=== PATIENT | male | born 1955 | race Caucasian/White ===

== ENCOUNTER 2018-06-12 13:34 | Inpatient (IN) ==
[2018-06-12] MEDS ORDERED: Isovue-370 500 ML INFUS..BTL IV ONE (13:41)
[2018-06-12 13:57] LABS: Hematocrit 33.8 % (37.5-50.1); Hemoglobin 10.8 g/dL (12.9-16.9); Mean Platelet Volume 11.1 fL (9.4-12.4); Nucleated Red Blood Cells 0.9 /100 WBC (0); Platelet Count 204 K/mcL (140-400); Red Blood Count 3.38 M/mcL (4.19-5.50); Red Cell Distribution Width 16.3 % (11.5-14.5)
[2018-06-12] MEDS ORDERED: Nitroglycerin 25 MG/250 ML INFUS..BTL IVC SCH (14:00)
[2018-06-12] MEDS ORDERED: Heparin 25,000 UNIT/500 ML D5W 25,000 UNIT/500 ML BAG IVC SCH (14:00)
[2018-06-12] MEDS ORDERED: *HR* Heparin 5,000 UNIT/ML VIAL IVP ONE (14:00)
[2018-06-12] MEDS ORDERED: *HR* Heparin 5,000 UNIT/ML VIAL IVP PRN ×2 (14:00)
[2018-06-12] MEDS ORDERED: *HR* Ticagrelor 90 MG TABLET PO ONE (14:02)
[2018-06-12 14:06] LABS: INR 1.3; Prothrombin Time 14.6 Seconds (9.4-12.1)
--- NOTE | 2018-06-12 14:07 | Emergency Department Note ---
Disposition Clinical Impression: ST segment changes on electrocardiogram, Splenomegaly, NSTEMI (non-ST elevated myocardial infarction) Chest pain Qualifiers: Chest pain type: unspecified Qualified Code(s): R07.9 - Chest pain, unspecified Disposition: Admitted As Inpatient Condition: Critical Chest Pain HPI - General Chief Complaint: ED Chest Pain Stated Complaint: CP Time Seen by Provider: 06/12/18 13:53 Source: patient, EMS Mode of arrival: private vehicle Limitations: no limitations Vital Signs Reviewed: Yes Nursing Notes Reviewed: Yes - History of Present Illness HPI Narrative: Patient is a 63-year-old male with past medical history including polycythemia, history of aortic aneurysms with stent placements 5 years ago, hypertension, presenting with chief complaint of chest pain for the past week. Patient complains of substernal sharp chest pain that occurs worse in the evening for the past week. He states the chest pain has been progressively worsening and is now associated with shortness of breath. This morning he noticed bilateral lower extremity swelling which is also new for him. Chest pain was the most severe today and he is presenting for further evaluation. Severity scale (1-10): 5 - Related Data Home Medications Medication Instructions Recorded Confirmed Aspirin 81 mg PO DAILY 02/25/15 06/12/18 Atorvastatin [Lipitor] 40 mg PO HS 02/25/15 06/12/18 Acetaminophen w/Cod 300-30 mg 1 each PO Q12HR PRN 01/15/16 06/12/18 [Tylenol w/Codeine #3] Ranitidine HCl [Zantac] 300 mg PO HS 01/22/18 06/12/18 Previous Rx's Medication Instructions Recorded Heparin 2,000 unit IVP Q6H PRN vial 06/12/18 Heparin 4,000 unit IVP Q6HR PRN vial 06/12/18 Allergies Allergy/AdvReac Type Severity Reaction Status Date / Time No Known Allergies Allergy Verified 04/20/18 15:00 All systems ED: reviewed and negative except as stated. Review of Systems: As Per HPI Constitutional: Denies: fever, chills Eyes: Denies: vision change Cardiovascular: Reports: chest pain. Denies: palpitations Respiratory: Reports: dyspnea. Denies: cough Gastrointestinal: Denies: abdominal pain, nausea, diarrhea Genitourinary: Denies: dysuria Musculoskeletal: Denies: back pain Neurological: Denies: headache, weakness Chest Pain PMH - Past Medical History Medical history: Reports: hyperlipidemia, hypertension Psychiatric history: Reports: no psych history - Social History Smoking Status: Current every day smoker Alcohol use: Reports: none Drug use: Reports: none Physical Exam - General Limitations: no limitations General appearance: alert, in distress (moderate) - Head Head exam: atraumatic, normocephalic, normal inspection - Eye Eye exam: Present: normal appearance, EOMI - ENT ENT exam: normal exam, mucous membranes moist - Chest Chest inspection: Present: normal inspection, symmetric chest wall rise - Respiratory Respiratory exam: Present: normal lung sounds bilaterally. Absent: respiratory distress, wheezes - Cardiovascular Cardiovascular exam: Present: normal rhythm, tachycardia, normal heart sounds, other (Bilateral pulses are) - Abdominal Exam Abdominal exam: Present: soft, Non-Tender, other. Absent: distention, guarding, rebound, rigidity, normal bowel sounds, pulsatile mass - Extremities Exam Extremities exam: Present: normal capillary refill, other (Bilateral lower extremity pitting edema 1+ to midcalf) - Neurological Exam Neurological exam: Present: alert, oriented X3 - Psychiatric Psychiatric exam: Present: normal affect, normal mood - Skin Skin exam: Present: warm, intact, diaphoresis, pallor Course Vital Signs Temperature 96.7 F L 06/12/18 13:37 Pulse Rate 122 06/12/18 13:37 Respiratory Rate 22 06/12/18 13:37 Blood Pressure 119/57 06/12/18 13:37 O2 Sat by Pulse Oximetry 100 06/12/18 13:37 Temperature 96.7 F L 06/12/18 13:37 Pulse Rate 114 06/12/18 13:58 Respiratory Rate 22 06/12/18 14:35 Blood Pressure 88/6 06/12/18 14:35 O2 Sat by Pulse Oximetry 99 06/12/18 13:44 Oxygen Delivery Oxygen Delivery Nasal Cannula Chest Pain - [facility] Narrative Medical decision making narrative: Patient presenting with chest pain that is been intermittent for the past week, worsening in the evening. States today he had lower extremity swelling assoc iated with his chest pain is presenting here today. EKG obtained shows diffuse ST depression in all leads with ST elevation in aVR. Heart rate is tachycardic with 119 bpm. We called a STEMI alert at 13:45. Dr. Leo, interventional cardiology was called. We obtained posterior leads with ST depression in V7 and [address] elevation in V9. Discussed with Dr. Leo again at 13:56. STEMI alert was canceled and patient has been sent to CT imaging to evaluate for dissection with CT a chest, abdomen and pelvis. Heparin drip, nitro drip, Dilantin was also ordered per Dr. Leo's recommendations. Labs also obtained. Patient's blood pressure is also hypotensive states he is receiving IV fluids as well. He received 1 nitroglycerin with some relief in his pain. No more nitroglycerin will be given at this time secondary to blood pressure. Bedside ED [id number] ultrasound was obtained of his abdomen to evaluate for dissection. Aorta was visualized and not appear to be dilated without any evidence of dissection. 14:20 Troponin is 2.90. Nitro drip is held secondary to hypotension. No gross dissection was seen in CT when we called down there. He also did not have any abdominal pulsatile mass, equal radial pulses. Discussed with cardiology, Patient taken to laborer general for further intervention and admitted to ICU afterwards. 15:[address] results reviewed. There is no acute aortic pathology or dissection noted. However he is noted to have splenomegaly. - Medical Records Medical records reviewed: Yes I reviewed the patient's medical records. - Lab Data Result diagrams: 06/12/18 13:46 06/12/18 13:46 Lab Results 06/12/18 06/12/18 06/12/18 Range/Units 13:46 13:46 13:46 WBC 6.8 (4.3-11.1) K/mcL RBC 3.38 L (4.19-5.50) M/mcL Hgb 10.8 L (12.9-16.9) g/dL Hct 33.8 L (37.5-50.1) % MCV 100.0 (83.0-100.0) fL MCH 32.0 (28.0-33.3) pg MCHC 32.0 (31.6-35.5) g/dL RDW 16.3 H (11.5-14.5) % Plt Count 204 (140-400) K/mcL MPV 11.1 (9.4-12.4) fL Seg Neutrophils % 58.0 % Band Neutrophils % 6.0 H (0-4) % Lymphocytes % 18.0 % Monocytes % 10.0 % Eosinophils % 6.0 % Metamyelocytes % 2.0 H (0) % Neutrophils # 4.4 (1.6-8.9) K/mcL Lymphocytes # 1.2 (0.6-4.6) K/mcL Monocytes # 0.7 (0.0-1.3) K/mcL Eosinophils # 0.4 (0.0-0.6) K/mcL Nucleated RBCs/100 WBC 0.9 H (0) /100 WBC Platelet Estimate Normal (Normal) PT 14.6 H (9.4-12.1) Seconds INR 1.3 APTT 33.0 (26.0-36.0) Seconds Heparin Anti-Xa, Unfract 0.00 L (0.30-0.70) IU/mL Sodium 136 (136-145) mEq/L Potassium 4.4 (3.5-5.1) mEq/L Chloride 105 (98-107) mEq/L Carbon Dioxide 21 L (23-29) mEq/L BUN 26 H (8-23) mg/dL Creatinine 1.08 (0.70-1.30) mg/dL Est GFR ( Amer) > 60 (> 60) Est GFR (Non-Af Amer) > 60 (> 60) BUN/Creatinine Ratio 24 (6-26) Glucose 148 H (70-105) mg/dL Calculated Osmolality 290 (280-300) Calcium 8.8 (8.6-10.3) mg/dL Troponin I 2.90 H* (< 0.04) ng/mL - Radiology Data Radiology results reviewed: Yes I reviewed the patient's radiology results. Abdomen/Pelvis CTA 06/12/18 13:41 IMPRESSION: 1. No acute aortic pathology or dissection. 2. Increasing adenopathy within the chest, abdomen and pelvis. There is also marked splenomegaly with the spleen measuring up to 25 cm in craniocaudal dimension. Lymphomatous process is suspected. 3. No pulmonary embolus. 4. Mild nonspecific periportal edema. D/ / 06/12/2018 14:55:45 Kimberly Messer MD / bcarter Interpreting Provider: Kimberly Messer MD Chest CTA 06/12/18 13:41 IMPRESSION: 1. No acute aortic pathology or dissection. 2. Increasing adenopathy within the chest, abdomen and pelvis. There is also marked splenomegaly with the spleen measuring up to 25 cm in craniocaudal dimension. Lymphomatous process is suspected. 3. No pulmonary embolus. 4. Mild nonspecific periportal edema. D/ / 06/12/2018 14:55:45 Kimberly Messer MD / [email or web address] Interpreting Provider: Kimberly Messer MD - EKG Data EKG attestation: Yes I reviewed and interpreted this EKG. EKG results narrative: EKG obtained at 1339 shows sinus rhythm with heart rate 119. There is a left anterior fascicular block. There is diffuse ST depression in lead 1, 2, 3, V3, V4, V5, V6. There is ST elevation in aVR. These are all new changes compared to prior EKG on 05/30/2014. Second EKG obtained to include the posterior leads. There is ST depression in V7 and [address] elevation in V9. Attestation Statement - Attestation Attestation: I, Frandy Green DO, examined this patient [id number] and my medical decision-making was reviewed with Dr. Lucita Jacobsen , Resident Physician. I agree with the documented findings, disposition and treatment plan as described except to the extent set forth below. Please see my progress notes for details.
--- NOTE | 2018-06-12 14:16 | Cardiology Consult Note ---
Addendum entered and electronically signed by Vinicius Mo DO 06/12/18 16:19: I have personally performed a face to face evaluation on this patient. I have reviewed and agree with the care plan. History and Exam by me shows: Patient independently seen and examined prior to cardiac catheterization. Multiple risk factors for CAD presents with progressive chest pain over the last several days. Seen and evaluated in the ER. ECG noted to be abnormal, ST depressions noted. Troponin 2.9. Decision made to proceed with diagnostic cardiac catheterization. The risks, benefits, and alternatives to procedure were discussed and patient was agreeable to proceed. Catheterization demonstrated significant left main disease. Bypass recommended. Patient declined here, he will be transferred to a tertiary center. Agree with ACS therapy as described below. Of note, LVEF reportedly 40%. TTE pending. Thanks, Vinicius Mo DO, FAC Addendum entered and electronically signed by Froy Morfin CNP 06/12/18 15:36: Please use as cardiology H&P. Original Note: Date of Encounter: 06/12/18 Time of Encounter: 14:13 Assessment and Plan (1) NSTEMI (non-ST elevated myocardial infarction) Current Visit: Yes Status: Acute Initial troponin 2.90. Significant ischemic changes on ECG compared to 06/04/18. Diffuse diffuse ST depression in all leads with ST elevation in aVR. Does not meet STEMI criteria. Pt reports intermittent left sided chest/neck/shoulder pain for the past 5-7 days associated with dyspnea, diaphoresis, BLE edema. Symptoms worsening past 24 hours. CTA ABD/Pelvis/Chest was done to r/o dissection. Final report pending. Started on heparin gtt. Will start ASA and Statin. BB once BP allows. On Plavix 75mg daily at home, no load given. TTE to evaluate structure and function. EF preserved in 2013. Hx of carotid stenosis and PAD s/p multiple vascular procedures. Pt is hypotensive and tachycardic. Fluid bolus ordered. Given above, recommend urgent LHC. R/B/A discussed. Pt agrees and verbalizes understanding. Further recs to follow. Discussed with Dr. Mo and Dr. Mila Delgadillo. Discussion w patient/family: The assessment and plan as outlined above was discussed with the patient and/or family members who expressed understanding and agreement. All questions were answered. Thank you for involving us in the care of your patient. Please call with any questions. I will discuss all the above with Dr. Mo and make changes as necessary. History of Present Illness Consult date: 06/12/18 Chief complaint: chest/shoulder pain History of present illness: Mr. Sarah is a 63 year old male with PMH of bilateral carotid stenosis, PAD s/p several vascular interventions, HLD, COPD, tobacco abuse presenting with chest and left shoulder pain that is been intermittent for the past week, worsening over the past 24 hours. Reports associated diaphoresis and BLE edema. EKG obtained shows diffuse ST depression in all leads with ST elevation in aVR. EKG does not meet STEMI criteria, but is still concerning given significance of diffuse ischemic changes compared to ECG on 06/04/18. He received 1 nitroglycerin with some relief in his pain. No additional nitro was given due to hypotension. ED physician ordered CTA chest/ABD pelvis abdomen to evaluate for dissection. Pending. Troponin resulted--2.90. Cardiology consulted for further recs. Pain free currently. Prior CV testing: TTE 02/2014: Normal left ventricular structure and function. LVEF 65%. Normal LVDD. Normal right ventricular structure and function. Trileaflet aortic valve with focal calcification of the NCC. Normal function by Doppler. No hemodynamically significant valvular disease. Estimated RVSP is 36 mmHg. Mild pulmonary hypertension. Nuclear stress test 01/2014 : Perfusion imaging was negative for ischemia or infarct. Moderate sized perfusion defect of mild intensity in the inferior wall consistent with artifact. Hypotensive response to pharmacologic infusion with decrease in systolic BP from 100 mmHg to 80 mmHg which may represent side effect from medication, dehydration or severe CAD. No arrhythmias noted with stress. Gated EF = >70%. The LV is not dilated. There is no evidence of TID. Recommend clinical correlation. Past Med Surg Social Fam HX - Past Medical History Medical history: hyperlipidemia, hypertension, peripheral artery disease Additional medical history: blood thinners Psychiatric history: no psych history - Past Surgical History Additional surgical history: stents in abd - Social History Smoking Status: Current every day smoker Smokeless Tobacco Status: No Alcohol use: none Drug use: none Medications and Allergies Aspirin 81 mg PO DAILY 02/25/15 [History] Atorvastatin [Lipitor] 40 mg PO HS 02/25/15 [History] Clopidogrel [Plavix] 75 mg PO DAILY 02/25/15 [History] Acetaminophen w/Cod 300-30 mg [Tylenol w/Codeine #3] 1 each PO Q12HR PRN 01/15/16 [History] Atenolol [Tenormin] 25 mg PO DAILY 07/15/16 [History] Ranitidine HCl [Zantac] 300 mg PO HS 01/22/18 [History] Allergy/AdvReac Type Severity Reaction Status Date / Time No Known Allergies Allergy Verified 04/20/18 15:00 All Systems Review: The remainder of the systems were reviewed and are negative - Cardiovascular Cardiovascular: as per HPI, chest pain at rest, chest pain with exertion, diaphoresis, dyspnea at rest, dyspnea on exertion, radiating jaw, neck or arm pain, leg edema - Respiratory Respiratory: dyspnea Physical Examination Vital Signs, Last 4 Hours Temp Pulse Resp BP Pulse Ox 06/12/18 13:58 114 89/74 06/12/18 13:53 88/71 06/12/18 13:50 93/65 06/12/18 13:44 99 06/12/18 13:37 96.7 F L 122 22 119/57 100 Vital Signs Temp Pulse Resp BP Pulse Ox 06/12/18 14:35 22 88/6 06/12/18 13:58 114 89/74 06/12/18 13:53 88/71 06/12/18 13:50 93/65 06/12/18 13:44 99 06/12/18 13:37 96.7 F L 122 22 119/57 100 Intake and Output 06/11/18 06/12/18 06/12/18 23:59 07:59 15:59 Other: Weight 80.876 kg Patient Weight 06/12/18 23:59 Weight 80.876 kg General: Conversant, No Apparent Distress HEENT: Atraumatic, Normocephaly, Mucus Membranes Moist Neck: Normal carotid pulses Cardiac: Reg Rate and Rhythm, Normal S1 and S2, No Murmur, Other (tachycardic) Lungs: Normal Breath Sounds, No Wheeze, Rales, Rhonchi Neuro: Alert and responsive, No focal deficits noted Abdomen: Soft, Non-Tender Skin: No rashes noted on visualized skin Musculoskeletal: No Chest Wall Tenderness Extremities: Other (2+ BLE edema noted) Results 06/12/18 13:46 06/12/18 13:46 Short CBC 06/12/18 Range/Units 13:46 WBC 6.8 (4.3-11.1) K/mcL Hgb 10.8 L (12.9-16.9) g/dL Hct 33.8 L (37.5-50.1) % Plt Count 204 (140-400) K/mcL BMP 06/12/18 Range/Units 13:46 Sodium 136 (136-145) mEq/L Potassium 4.4 (3.5-5.1) mEq/L Chloride 105 (98-107) mEq/L Carbon Dioxide 21 L (23-29) mEq/L BUN 26 H (8-23) mg/dL Creatinine 1.08 (0.70-1.30) mg/dL Glucose 148 H (70-105) mg/dL Calcium 8.8 (8.6-10.3) mg/dL Cardiac Enzymes 06/12/18 Range/Units 13:46 Troponin I 2.90 H* (< 0.04) ng/mL Active Medications Heparin Sodium (Porcine) (Heparin) 4,000 unit IVP Q6HR PRN PRN Reason: SEE COMMENTS Stop: 12/12/18 14:01 Heparin Sodium (Porcine) (Heparin) 2,000 unit IVP Q6H PRN PRN Reason: SEE COMMENTS Stop: 12/12/18 14:01 Heparin Sodium/Dextrose (Heparin 25,000 Unit/500 Ml D5w) 25,000 unit in 500 mls @ 19.41 mls/hr IVC .Q24H DOLORES; Protocol Stop: 12/12/18 14:01 Last Admin: 06/12/18 14:27 Dose: 12 unit/kg/hr, 19.41 mls/hr Nitroglycerin (Nitroglycerin Premix 25 Mg/250 Ml) 25 mg in 250 mls @ 3 mls/hr IVC .Q24H DOLORES; Protocol Stop: 12/12/18 14:01 Last Admin: 06/12/18 14:31 Dose: Not Given Sodium Chloride (0.9 % Sodium Chloride) 1,000 mls @ 999 mls/hr IVC .Q1H1M ONE Stop: 06/12/18 15:23 Consult Discharge Plan - Plan Referrals: Richie Ford MD [Primary Care Provider] -
[2018-06-12] MEDS ORDERED: ISOVUE-370 200 ML INFUS..BTL ONE (14:17)
[2018-06-12] MEDS ORDERED: Heparin 1,000 UNITS/500 mL 500 ML ONE (14:17)
[2018-06-12] MEDS ORDERED: 0.9 % Sodium Chloride 1,000 ML ONE ×2 (14:17→14:31)
[2018-06-12] MEDS ORDERED: Nitroglycerin 1,000 MCG/10 ML VIAL IV ONE (14:17)
[2018-06-12] MEDS ORDERED: *HR* Heparin 10,000 UNIT/10 ML VIAL ONE (14:17)
[2018-06-12 14:19] LABS: BUN/Creatinine Ratio 24 (6-26); Blood Urea Nitrogen 26 mg/dL (8-23); Calcium 8.8 mg/dL (8.6-10.3); Carbon Dioxide 21 mEq/L (23-29); Chloride 105 mEq/L (98-107); Glucose 148 mg/dL (70-105); Osmolality,Calculated 290 (280-300); Potassium 4.4 mEq/L (3.5-5.1); Sodium 136 mEq/L (136-145); eGFR For Non-African Americans > 60 (> 60)
[2018-06-12] MEDS ORDERED: 0.9 % Sodium Chloride 1,000 ML IVC ONE (14:23)
[2018-06-12] MEDS ORDERED: *HR* Midazolam HCl 2 MG/2 ML VIAL ONE (14:37)
[2018-06-12] MEDS ORDERED: *HR* FentaNYL (PF) 100 MCG/2 ML VIAL ONE (14:37)
--- NOTE | 2018-06-12 14:40 | Emergency Department Note ---
Disposition Clinical Impression: Chest pain, ST segment changes on electrocardiogram Disposition: Admitted As Inpatient Condition: Fair Referrals: Richie Ford MD [Primary Care Provider] - Forms: ED Satisfaction Letter Time of Disposition: 14:54 General Adult HPI - General Chief complaint: ED Chest Pain Stated complaint: CP Time Seen by Provider: 06/12/18 13:53 Source: patient, EMS Mode of arrival: private vehicle Limitations: no limitations - History of Present Illness Pain Scale: 5 - Related Data Home Medications Medication Instructions Recorded Confirmed Aspirin 81 mg PO DAILY 02/25/15 06/12/18 Atorvastatin [Lipitor] 40 mg PO HS 02/25/15 06/12/18 Clopidogrel [Plavix] 75 mg PO DAILY 02/25/15 06/12/18 Acetaminophen w/Cod 300-30 mg 1 each PO Q12HR PRN 01/15/16 06/12/18 [Tylenol w/Codeine #3] Atenolol [Tenormin] 25 mg PO DAILY 07/15/16 06/12/18 Ranitidine HCl [Zantac] 300 mg PO HS 01/22/18 06/12/18 Allergies Allergy/AdvReac Type Severity Reaction Status Date / Time No Known Allergies Allergy Verified 04/20/18 15:00 Past Medical History - Past Medical History Medical history: Reports: hyperlipidemia, hypertension Psychiatric history: Reports: no psych history - Social History Smoking Status: Current every day smoker Smokeless Tobacco Status: No Alcohol use: Reports: none Drug use: Reports: none Physical Exam - General Limitations: no limitations General appearance: alert Course Vital Signs Temperature 96.7 F L 06/12/18 13:37 Pulse Rate 122 06/12/18 13:37 Respiratory Rate 22 06/12/18 13:37 Blood Pressure 119/57 06/12/18 13:37 O2 Sat by Pulse Oximetry 100 06/12/18 13:37 Temperature 96.7 F L 06/12/18 13:37 Pulse Rate 114 06/12/18 13:58 Respiratory Rate 22 06/12/18 14:35 Blood Pressure 88/6 06/12/18 14:35 O2 Sat by Pulse Oximetry 99 06/12/18 13:44 Oxygen Delivery Oxygen Delivery Nasal Cannula Medical Decision Making - Lab Data Result diagrams: 06/12/18 13:46 06/12/18 13:46 Lab Results 06/12/18 06/12/1806/12/19 Range/Units 13:46 13:46 13:46 WBC 6.8 (4.3-11.1) K/mcL RBC 3.38 L (4.19-5.50) M/mcL Hgb 10.8 L (12.9-16.9) g/dL Hct 33.8 L (37.5-50.1) % MCV 100.0 (83.0-100.0) fL MCH 32.0 (28.0-33.3) pg MCHC 32.0 (31.6-35.5) g/dL RDW 16.3 H (11.5-14.5) % Plt Count 204 (140-400) K/mcL MPV 11.1 (9.4-12.4) fL Nucleated RBCs/100 WBC 0.9 H (0) /100 WBC PT 14.6 H (9.4-12.1) Seconds INR 1.3 APTT 33.0 (26.0-36.0) Seconds Sodium 136 (136-145) mEq/L Potassium 4.4 (3.5-5.1) mEq/L Chloride 105 (98-107) mEq/L Carbon Dioxide 21 L (23-29) mEq/L BUN 26 H (8-23) mg/dL Creatinine 1.08 (0.70-1.30) mg/dL Est GFR ( Amer) > 60 (> 60) Est GFR (Non-Af Amer) > 60 (> 60) BUN/Creatinine Ratio 24 (6-26) Glucose 148 H (70-105) mg/dL Calculated Osmolality 290 (280-300) Calcium 8.8 (8.6-10.3) mg/dL Troponin I 2.90 H* (< 0.04) ng/mL Critical Care Time Critical Care Time: Yes Total Critical Care Time: 35 Attestation: Critical care performed: Time is exclusive of separately billable procedures. Time includes: direct patient care, patient reassessment, coordination of patient care, interpretation of data (laboratory data, radiology data, and respiratory data), review of patient's medical records, medical consultation and documentation of patient care. Procedures included in critical care time: Procedures excluded from critical care time: Attestation Statement - Attestation Attestation: Frandy Hernandez DO, examined this patient [id number] and my medical decision-making was reviewed with Dr. Lucita Jacobsen , Resident Physician. I agree with the documented findings, disposition and treatment plan as described except to the extent set forth below. Please see my progress notes for details. 63-year-old male presents emergency room by EMS for evaluation of chest pain. Symptoms of been present for approximately 7 days. His pain progressively got worse today and he said he called squad to be brought in. He does have a history of vascular stenting to the subclavian some femoral is according to him as well as an aorta. He denies any stenting of his heart in the past. Patient does have known history of vasculopathy. Vital signs are initially stable. One sublingual nitroglycerin was given in transport. This helped with his symptoms a little bit at that time his blood pressure did not tolerate the medications. Currently his only describes symptom is chest pain. Denies shortness of breath fevers chills. Denies any nausea vomiting or diarrhea. Denies any headache or vision change. Initial concern is noted for possible vascular related issue as well. Immediate bedside pelvic ultrasound was utilized showing no signs of dissection the abdominal cavity. CT angiography the chest abdomen and pelvis were ordered. Initial EKG was concerning for diffuse ST segment depressions including all the leads except for AVr and V1. There was elevation noted in those 2 lesions at this time. After a quick deliberation is determined that a STEMI alert was called. This was called at 1345. The EKG was reviewed with the on-call skip hoist operator Dr. Mila Delgadillo. She agrees this is most likely consistent with diffuse ischemia but does not meet acute myocardial infarction criteria at this time. Posterior EKG was completed by myself as well as the did show possible elevation in lead V6. This EKG was also reviewed with the skip hoist operator and no recommendations were made at this time. They sent with her advanced breasts providers done at the bedside to evaluate the patient. Interim CT angiography the chest and abdomen were ordered without labs. Disposition will be determined. Initial blood pressure was low. Heparin drip as well as Brilinta and nitroglycerin drip for requested by the skip hoist operator and these were ordered at this time. Fluids will be given for symptomatic control and disposition. Concern is noted for cardiac versus vascular related etiology causing the presentation here today. 1415 Patient has elevated troponin at 2.96. Blood pressure is low at this time with a systolic of 88.. Bolus was given. Symptoms are persistent but the patient is mentating appropriately. He is describing left-sided chest wall discomfort. Cardiology was at the bedside and recommended that he go to the [facility] at this time. Further medical intervention will be completed. [facility] was contacted and they are taking the patient immediately to the evaluation. Creatinine ap pears to be stable. Troponin is elevated. Platelets and hemoglobin are unremarkable. CT angiography of the chest and abdomen are reviewed by myself and did not show any acute signs of dissection or aneurysm at this time. Patient is leaving our emergency department stable to the [facility] for eval uation and cardiac catheterization. 35 minutes of critical care by the patient's treatment course at this time. Patient left our emergency department stable
[2018-06-12 14:41] LABS: Eosinophils # 0.4 K/mcL (0.0-0.6); Lymphocytes # 1.2 K/mcL (0.6-4.6); Monocytes # 0.7 K/mcL (0.0-1.3); Neutrophils # 4.4 K/mcL (1.6-8.9); Platelet Estimate Normal (Normal)
--- NOTE | 2018-06-12 14:44 | Pre-Sedation Evaluation ---
Pre-sedation evaluation - Pre-sedation checklist Date of procedure: 06/12/18 Procedure: [facility] Recent Vitals: Last Vital Signs Temp 96.7 F L 06/12/18 13:37 Pulse 114 06/12/18 13:58 Resp 22 06/12/18 14:35 BP 88/6 06/12/18 14:35 Pulse Ox 99 06/12/18 13:44 H&P (including ROS) documented in medical record: Yes Previous reaction to sedatives/anesthetics: No Dietary Status: unknown Airway Assessment: Patient can open mouth completely, TMJ function normal, Micrognathia (under-bite, receding chin) absent, Neck with adequate range of motion Dentition: No loose teeth or bridges Possible difficult airway: No ASA Classification *see protocol: CLASS II-Mild systemic disease, CLASS III- Severe systemic disease Plan of Care: Pt appropriate candidate for procedure/moderate/conscious sedation, Risks/benefits of procedure/sedation discussed w/ patient/family, If not NPO; Risk of intake outweiged by necessity to perform procedure Cardiac Registry (Cardio Only) - Functional Capacity Functional Capacity: < 4 METS - Clincal Frailty Scale Clinical Frailty Scale: Vulnerable
--- NOTE | 2018-06-12 15:40 | Cardiothoracic Consult Note ---
Date of Encounter: 06/12/18 Time of Encounter: 15:37 Assessment and Plan (1) NSTEMI (non-ST elevated myocardial infarction) Current Visit: Yes Status: Acute The assessment and plan as outlined above was discussed with the patient and/or family members who expressed understanding and agreement. All questions were answered. The patient in my opinion is not a candidate for emergency open heart surgery tonight at this institution. His ventricular function is poor, he is in the middle of a myocardial infarction and he is on daily Plavix and received some today. I would recommend transfer to a in institution in [place] or [place]. - History of Present Illness History of present illness: Mr. Sarah is a 63 year old male The patient is a 63-year-old gentleman who is presently in the cardiac catheterization lab. The history was obtained from the chart as the patient is prepped and draped. He presented with chest pain and had a positive troponin of 2.9. Past medical history is positive for peripheral vascular disease and cerebrovascular disease. Cardiac catheterization reveals decreased ventricular function. Ejection fraction looks to me to be under 30%. He has a significant left main lesion. He does have bypassable circumflex, diagonal and LAD vessels. The right coronary artery is 100% blocked. The patient has been on daily Plavix and received it today. Past Med Surg Social Fam HX - Past Medical History Medical history: hyperlipidemia, hypertension Additional medical history: blood thinners Psychiatric history: no psych history - Past Surgical History Additional surgical history: stents in abd - Social History Smoking Status: Current every day smoker Smokeless Tobacco Status: No Alcohol use: none Drug use: none Medications and Allergies Aspirin 81 mg PO DAILY 02/25/15 [History] Atorvastatin [Lipitor] 40 mg PO HS 02/25/15 [History] Clopidogrel [Plavix] 75 mg PO DAILY 02/25/15 [History] Acetaminophen w/Cod 300-30 mg [Tylenol w/Codeine #3] 1 each PO Q12HR PRN 01/14 [History] Atenolol [Tenormin] 25 mg PO DAILY 07/15/16 [History] Ranitidine HCl [Zantac] 300 mg PO HS 01/22/18 [History] Allergy/AdvReac Type Severity Reaction Status Date / Time No Known Allergies Allergy Verified 04/20/18 15:00 All Systems Review: The remainder of the systems were reviewed and are negative Physical Examination Vital Signs, Last 4 Hours Temp Pulse Resp BP Pulse Ox 06/12/18 14:35 22 88/6 06/12/18 13:58 114 89/74 06/12/18 13:53 88/71 06/12/18 13:50 93/65 06/12/18 13:44 99 06/12/18 13:37 96.7 F L 122 22 119/57 100 I am unable to examine the patient as he is presently undergoing cardiac catheterization. Results 06/12/18 13:46 06/12/18 13:46 Lab Results, Last 24 hours 06/12/18 06/12/18 06/12/18 13:46 13:46 13:46 WBC 6.8 Hgb 10.8 L Hct 33.8 L Plt Count 204 INR 1.3 APTT 33.0 Sodium 136 Potassium 4.4 Chloride 105 Carbon Dioxide 21 L BUN 26 H Creatinine 1.08 Glucose 148 H Calcium 8.8 Troponin I 2.90 H* Consult Discharge Plan - Plan Referrals: Richie Ford MD [Primary Care Provider] -
--- NOTE | 2018-06-12 15:46 | Invasive Diagnostic Lab Proc ---
Name: Alex Sarah Date of Study: 06/12/2018 Date: 1955 Ht: 66.9in Medical Record#: [id number] Age: 63 Wt: 178.57lb Gender: Male BSA: 1.93 Order #: [id number] BMI: 28.03 Physicians Procedure Physician: Mila Delgadillo MD, FACC Referring MD: Referring MD: Staff Name Position Time In Grant Zuniga RN Options Advisor 02:38 PM Diony Rodrigez RT (R) Scrub 02:38 PM Cece, Rani RT (R) Monitor 02:38 PM Inna Hicks RN Nurse 02:43 PM Gogo Cameron RN Nurse 02:43 PM Indications Indication Non-Stemi Procedures Performed Procedure L HRT ARTERY/VENTRICLE ANGIO INJECT SUPRVLVAORTAGRAM Angio w/Cath Iliac Artery S&I Pre-Procedure Checklist Informed consent is complete signed and on chart. H&P is on chart. ID band is on and ID verified with patient. Patient NPO for procedure The procedure was described for the patient and questions were answered. Blood Pressure: 91/67 ECG is on chart. Rhythm: Sinus Tachycardia Plan of Care Patient will tolerate the procedure without complications. Adequate level of comfort will be maintained. Hemodynamics will remain stable Patient will recover from procedure without complications. Respiratory function will be maintained. Cardiac rhythm will remain stable. Patient temperature will be maintained. Patient and/or family have verbalized understanding of the procedure. Patient Education Chief Complaint/Reason for Test: Cardiac Cath Developmental Category: Adult (18-64 years) Developmentally Appropriate for Age: Yes Learning Barriers: None Education Needs: Procedure Education Method: Verbal Information Taught: Cardiac Cath Educational Evaluation: Able to repeat information Intravenous Access Time IV Size Location DC'd Fluid/Drip Rate Units RN 18g 1 1/4" Peripheral-Lock On Arrival Rt Antecubital 20g 1 1/4" Peripheral-Lock On Arrival Lt Antecubital 0.9NaCl 50 ml/hr Grant Zuniga RN Allergies No Known Allergies Vital Signs Time BP (mmHg) HR (bpm) O2 Sat. RR (bpm) LOC 02:43 PM / % 5 = Fully awake and oriented or at pre-proc level 02:44 PM / 67 113 99 % 13 02:49 PM 65 113 97 % 13 02:54 PM 78 / 49 85 98 % 25 02:59 PM 84 / 65 107 100 % 29 03:04 PM 84 / 67 106 100 % 24 03:09 PM 89 / 71 109 98 % 26 03:14 PM 88 / 68 110 100 % 25 03:19 PM 96 / 58 108 99 % 21 03:25 PM 85 / 64 109 100 % 22 Procedural Medications Time Medication Dose Units Method Given By 02:43 PM Oxygen 2 L/min nasal cannula Grant Zuniga RN 02:44 PM Versed 1 mg Intravenous Grant Zuniga RN 02:45 PM Fentanyl 25 mcg Intravenous Grant Zuniga RN 02:49 PM Lidocaine 2% 18 ml Subcutaneous Mila Delgadillo MD, [facility] ASA Classification: CLASS II- Mild systemic disease (i.e. well-controlled diabetes, hypertension, asthma, cigarette smoking) Elias Score Preprocedure Postprocedure Activity 2- Moves 4 extremities sustained head lift Activity 2- Moves 4 extremities sustained head lift Circulation 2- SBP +/= 20 points of pre-anesthetic level Circulation 2- SBP +/= 20 points of pre-anesthetic level Consciousness 2- Awake and alert oriented x 3 Consciousness 2- Awake and alert oriented x 3 O2 Saturation 2- Able to maintain O2 satruation of 92% on room air O2 Saturation 2- Able to maintain O2 satruation of 92% on room air Respiratory 2- Able to deep breathe and cough well Respiratory 2- Able to deep breathe and cough well Total Score 10 Total Score 10 Contrast Agent: Isovue Diagnostic Contrast: 67 ml Total Contrast: 67 ml Fluoro Dose: 1730 mGy Procedure Log Time Note Enter By 02:18 PM CathStat 02:37 PM Pt arrived to medical laboratory scientist 2 at 14:37 scoates 02:37 PM Physician arrived 14:37 scoates 02:38 PM Rey and nora completed scoates 02:38 PM Sign in performed according to hospital policy. Informed consent was obtained. scoates 02:38 PM Procedure start 14:38 scoates 02:38 PM Grant Zuniga RN Position: Options Advisor Time in: 14:38 scoates 02:38 PM Diony Rodrigez RT (R) Position: Scrub Time in: 14:38 scoates 02:43 PM Rani Zhao RT (R) Position: Monitor Time in: 14:38 scoates 02:43 PM Patient charges- Angio tray pack, Navilyst 3mm J, Pulse Oximetry and ACIST tubing and transducer scoates 02: PM Time: : Oxygen on at 2 L/min per nasal cannula by Grant Zuniga RN scoates : PM Time: : Patient comfortable and pain free: Yes scoates 02:43 PM Time: 14:43LOC: 5 = Fully awake and oriented or at pre-proc level scoates 02:43 PM Clinical Presentation: Non-STEMI scoates 02: PM Hair removed from procedure site in holding area using clippers. Bilateral groin prepped with Chloraprep by Inna Hicks RN, then patient was draped. Skin intact. scoates 02: PM Inna Hicks RN Position: Nurse Time in: scoates 02: PM Gogo Cameron RN Position: Nurse Time in: scoates 02:44 PM Vitals capture started with the following parameters, Patient=Adult, Interval=5 min, Initial Kzjqxmbq=650 mmHg, Deflation Rate=5 mmHg, Cuff placed on Right Arm 02:44 PM Recorded ECG: FQ=119 Condition=Condition 1 02:44 PM GN=314 bpm, NIBP=91/67 mmhg, SpO2=99.0 %, Resp=13 B/min 02:45 PM Time: 14:44 Versed 1 mg Intravenous Given by Grant Zuniga RN scoates 02:45 PM Time: 14:45 Fentanyl 25 mcg Intravenous Given by Grant Zuniga RN scoates 02:49 PM NI=006 bpm, NIBP=91/65 mmhg, SpO2=97.0 %, Resp=13 B/min 02:49 PM Time out was performed according to hospital policy. Conscious sedation and anesthesia was achieved (see medication log with in this report above) tsites 02:50 PM Time: 14:49 18 ml Lidocaine 2% to right groin Subcutaneous Given by Mila Delgadillo MD, [facility] tsites 02:51 PM Access obtained by percutaneous puncture. 6Fr 10cm [place] sheath placed in right Femoral artery. [id number] tsites 02:51 PM 5Fr FL 4 catheter inserted over the wire [facility] tsites 02:51 PM 0.035 145cm Navilyst 3mmJ wire [id number] tsites 02:51 PM Pressure channel 1 zero failed. 02:51 PM Pressure channel 1 zero failed. 02:52 PM Pressure channel 1 zeroed. 02:52 PM Pressure channel 1 zero failed. 02:52 PM Pressure channel 1 zero failed. 02:52 PM Pressure channel 1 zero failed. 02:53 PM Pressure channel 1 zero failed. 02:53 PM Pressure channel 1 zeroed. 02:53 PM Recorded Pressure: Ao, FQ=914, Condition=Condition 1 (Aorta) Ao 84/54/66 02:54 PM LCA angiography performed in multiple views. tsites 02:54 PM HR=85 bpm, NIBP=78/49 mmhg, SpO2=98.0 %, Resp=25 B/min 02:55 PM wire reinserted catheter removed tsites 02:55 PM 5Fr FR 4 catheter inserted over the wire [facility] tsites 02:55 PM RCA angiography performed in multiple views. tsites 02:57 PM Recorded Pressure: LV, KF=033, Condition=Condition 1 (Left Ventricle) LV 93/11/68 02:57 PM wire reinserted catheter removed tsites 02:57 PM 5Fr Pigtail catheter inserted over the wire [facility] tsites 02:57 PM Catheter crossed the aortic valve and was selectively placed in the left ventricle. Pressures recorded on pullback for left heart catheterization. tsites 02:58 PM Bolus angiogram of left Ventricle complete: 8 ml/sec for a total of 24 mls tsites 02:58 PM Recorded Pressure: LV, Ao, RX=190, Condition=Condition 1 (Left Ventricle) LV 75/39/67, (Aorta) Ao 75/61/68 02:58 PM Bolus angiogram of Aortic root complete: 15 ml/sec for a total of 30 mls tsites 02:59 PM IC=490 bpm, NIBP=84/65 mmhg, XmI2=986.0 %, Resp=29 B/min 03:00 PM Right iliac and Left iliac angiography performed in multiple views tsites 03:04 PM NIBP STAT measurement started. 03:04 PM JV=761 bpm, NIBP=84/67 mmhg, DoM9=140.0 %, Resp=24 B/min 03:06 PM Physician reviewing films tsites 03:06 PM Cardiothoracic surgeon consulted by physician tsites 03:09 PM QH=499 bpm, NIBP=89/71 mmhg, SpO2=98.0 %, Resp=26 B/min 03:13 PM Lesion found in Proximal LMCA. Pre Stenosis: 99 Pre HUE Flow: tsites 03:14 PM ZU=354 bpm, NIBP=88/68 mmhg, YqD4=634 %, Resp=25 B/min 03:14 PM Lesion found in Proximal RCA. Pre Stenosis: 100 Pre HUE Flow: tsites 03:16 PM Lesion found in Proximal LAD. Pre Stenosis: 99 Pre HUE Flow: tsites 03:16 PM Lesion found in 2nd Diagonal. Pre Stenosis: 50 Pre HUE Flow: tsites 03:16 PM Lesion found in Proximal Circumflex. Pre Stenosis: 50 Pre HUE Flow: tsites 03:16 PM Lesion found in Mid Circumflex. Pre Stenosis: 50 Pre HUE Flow: tsites 03:17 PM Lesion found in Ramus. Pre Stenosis: 60 Pre HUE Flow: tsites 03:17 PM Left Main Coronary Artery with 99% stenosis tsites 03:17 PM Proximal Left Anterior Descending Coronary Artery with 99% stenosis. If graft is supplying this territory, 0 % stenosis. tsites 03:17 PM Mid/Distal Left Anterior Descending Coronary Artery and diagonal branches with 50% stenosis. If graft is supplying this area, 0 % stenosis tsites 03:17 PM Circumflex, Obtuse Marginal, Left Posterior Descending, and Left Posterolateral Coronary Arteries with 50 % stenosis. If graft is supplying this area, 0 % stenosis tsites 03:17 PM Right Coronary, Right Posterior Descending Arteries with Right Posterolateral and Acute Marginal branches with 100 % stenosis. If graft is supplying this area, 0 % stenosis tsites 03:17 PM Ramus with 60% stenosis. If graft is supplying this area, 0 % stenosis tsites 03:17 PM Conversation between Interventionalist and CT Surgeon. tsites 03:18 PM Coronary Dominance: Left tsites 03:19 PM TU=718 bpm, NIBP=96/58 mmhg, SpO2=99 %, Resp=21 B/min 03:[address] Sheffield reviewing films . Not a candidate for open heart tsites 03:25 PM RH=679 bpm, NIBP=85/64 mmhg, MgP7=695 %, Resp=22 B/min 03:[address] Delgadillo to ship to [facility] spoke with transfer center tsites 03:32 PM Procedure completed at 15:32 06/12/2018 tsites 03:32 PM Did you address HUE flow and Dominance? Yes tsites 03:33 PM Sign out completed: Radiation Dose 128 mGy, 1730 cGy/cm2 Fluoro Time: 2.2 Isovue 370 - 200ml contrast 67 ml given by Mila Delgadillo MD, [facility]. Complications: None. 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 Cardiac Rehab Consult needed: NoConfirmed administered medications: Yes tsites 03:33 PM Isovue 370 - 200ml,1 Bottle(s) used. tsites 03:33 PM Sheath left in place to be pulled on floor/holding areaV+Pad tsites 03:33 PM Estimated Blood Loss: minimal tsites 03:33 PM Post ECG Sinus Tachycardia tsites 03:33 PM Post Blood Pressure 85/64 tsites 03:33 PM 15:33 Post Pulses Bilateral DP & PT Doppler tsites 03:33 PM Information taught Cardiac Cath tsites 03:33 PM Education needs Procedure, Plan of Care, and Responsibilities of Patient in Care tsites 03:33 PM Learning barriers :None tsites 03:33 PM Education Methods Verbal tsites 03:33 PM Education evaluation Able to repeat information tsites 03:33 PM Site status No bleeding/hematoma - Rt Groin as reported by Diony Rodrigez RT (R) at 15:33 tsites 03:34 PM Opsite applied tsites 03:34 PM Report given to inna ADLER Pt taken to ICU Room #12. 15:34 tsites 03:34 PM Delay to floor No tsites 03:34 PM Patient out of room: 15:34 tsites 03:34 PM Family placed in consult room. tsites Complications Complication None Hemodynamics Pressures Site Systolic/A Wave Diastolic/V Wave Mean AO 84 54 66 LV 93 11 68 LV 75 39 67 AO 75 61 68 Post Procedure Information Blood Pressure: 85/64 mmHg Rhythm: Sinus Tachycardia Post procedural instructions were given Surgery consult for CABG Closure Device Time Device Success/Fail 06/12/2018 3:34:00 PM Manual Compression Site Checks Time Location Status Staff Sheath In? Note 03:33 PM Rt Groin No bleeding/hematoma Diony Rodrigez RT (R) Pulses Time Site Pre-Procedure Post-Procedure Note 3:33:00 PM Bilateral DP & PT Doppler Updated by RT Lupillo (R) on 06/12/2018 3:38:43 PM RT Lupillo electronically signed on 06/12/2018 3:39:40 PM with status of Final
[2018-06-12] MEDS ORDERED: *HR* Acetaminophen w/Cod 300-30 mg 1 TAB TABLET PO PRN (15:47)
--- NOTE | 2018-06-12 15:51 | Discharge Summary ---
Orders not resulted at time of discharge: Pending orders 06/12/18 13:46 CL Cardiac Catheterization [CL] Routine 06/12/18 15:42 EV echocardiogram Routine Date of Encounter: 06/12/18 Time of Encounter: 15:51 - Discharge Diagnosis (1) NSTEMI (non-ST elevated myocardial infarction) Priority: Primary Status: Acute (2) CAD (coronary artery disease) Priority: Primary Status: Acute Qualifiers: Coronary Disease-Associated Artery/Lesion type: [place] artery [place] vs. transplanted heart: [place] heart Associated angina: with unstable angina Qualified Code(s): I25.110 - Atherosclerotic heart disease of [place] coronary artery with unstable angina pectoris - Hospital Course Hospital course: Mr. Sarah is a 63 year old male with PMH of bilateral carotid stenosis, PAD s/p several vascular interventions, HLD, COPD, tobacco abuse that presented to ED today 06/12/18 with chest and left shoulder pain that is been intermittent for the past week, worsening over the past 24 hours, associated diaphoresis and BLE edema. Found to be tachycardic and hypotensive--BP 80s/50s. Troponin 2.90. EKG obtained shows diffuse ST depression in all leads with ST elevation in aVR. 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 LHC revealed 99% ostial LM disease, 99% pLAD, LCx 50% diffuse disease, 100% RCA, EF ~40%. Will attempt to o btain TTE prior to transfer if able. CT surgery was consulted for urgent CABG. He was declined for CABG at [facility] d/t being too high risk since he had Plavix 75mg as recent as this morning. Recommend urgent transfer to [facility] for further high risk intervention (PCI vs CABG). CTA Chest/ABD/Pelvis was obtained on admission to r/o dissection. 1. No acute aortic pathology or dissection. 2. Increasing adenopathy within the chest, abdomen and pelvis. There is also marked splenomegaly with the spleen measuring up to 25 cm in craniocaudal dimension. Lymphomatous process is suspected. 3. No pulmonary embolus. 4. Mild nonspecific periportal edema. C images placed on pt chart. CTA sent electronically. Urgent transfer to [facility] to accepting Dr. Idalia bach Attar. Pt will remain in ICU until transfer on heparin gtt. Time spent discussing smoking cessation with patient: 3 to 10 minutes - Time Spent with Patient Total time spent providing and/or coordinating discharge services: Less than 30 minutes - Discharge Medications Home Medications: Aspirin 81 mg PO DAILY 02/25/15 [History] Atorvastatin [Lipitor] 40 mg PO HS 02/25/15 [History] Acetaminophen w/Cod 300-30 mg [Tylenol w/Codeine #3] 1 each PO Q12HR PRN 01/15/16 [History] Ranitidine HCl [Zantac] 300 mg PO HS 01/22/18 [History] Heparin 2,000 unit IVP Q6H PRN vial 06/12/18 [Rx] Heparin 4,000 unit IVP Q6HR PRN vial 06/12/18 [Rx] Allergies/Adverse Reactions: Allergy/AdvReac Type Severity Reaction Status Date / Time No Known Allergies Allergy Verified 04/20/18 15:00 Date of admission: 06/12/18 15:26 Primary care physician: Richie Ford MD Consults: CT surgery Physical Examination Vital Signs, Last 4 Hours Temp Pulse Resp BP Pulse Ox 06/12/18 14:35 22 88/6 06/12/18 13:58 114 89/74 06/12/18 13:53 88/71 06/12/18 13:50 93/65 06/12/18 13:44 99 06/12/18 13:37 96.7 F L 122 22 119/57 100 Vital Signs Temp Pulse Resp BP Pulse Ox 06/12/18 14:35 22 88/6 06/12/18 13:58 114 89/74 06/12/18 13:53 88/71 06/12/18 13:50 93/65 06/12/18 13:44 99 06/12/18 13:37 96.7 F L 122 22 119/57 100 Intake and Output 06/12/18 06/12/18 06/12/18 07:59 15:59 23:59 Other: Weight 80.876 kg Patient Weight 06/12/18 23:59 Weight 80.876 kg General: Conversant, No Apparent Distress HEENT: Atraumatic, Normocephaly, Mucus Membranes Moist Neck: Normal carotid pulses Cardiac: Reg Rate and Rhythm, Normal S1 and S2, No Murmur, Other (tachycardic) Lungs: Normal Breath Sounds, No Wheeze, Rales, Rhonchi Neuro: Alert and responsive, No focal deficits noted Abdomen: Soft, Non-Tender Skin: No rashes noted on visualized skin Musculoskeletal: No Chest Wall Tenderness Extremities: No Clubbing, No Cyanosis, Other (2+ BLE edema) - Patient Status Disposition: Transfer Critical Access Hosp Condition: Critical Functional capacity at discharge: bed bound Overall status at discharge: patient is not back to baseline - Discharge Instructions Follow Up With: Richie Ford MD [Primary Care Provider] - - Diet and Activity Diet: low fat, low cholesterol, low salt diet
[2018-06-12] MEDS ORDERED: Perflutren Lipid Microsphere 1.3 ML in 0.9 % Sodium Chloride 8.7 ML IVP ONE (17:03)
[2018-06-12] MEDS ORDERED: *HR* Atropine Sulfate 1 MG/10 ML SYRINGE ONE (17:33)
[2018-06-12 18:53] VITALS: BP 80/70
[2018-06-12] MEDS ORDERED: Famotidine 20 MG TABLET PO SCH (21:00)
[2018-06-13] MEDS ORDERED: Aspirin 81 MG TAB.CHEW PO SCH (09:00)
--- NOTE | 2018-06-13 10:19 | Electrocardiograph Report ---
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
--- NOTE | 2018-06-14 12:36 | Electrocardiograph Report ---
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
== END 2018-06-12 19:20 | disposition critical access hospital (66) | DRG 192 ==
LOC: EMEROOARM 13:34 → ICNU 14:28
PROVIDERS: ADMIT Internal Medicine Interventional Cardiology; ATTEND Internal Medicine Interventional Cardiology